=== PATIENT | female | born 1990 | race Two or more races ===

== ENCOUNTER 2018-12-25 19:56 | Inpatient (IN) | payer OTHER ==
[~2018-12-25] VITALS: Ht 160 cm; Wt 72.8 kg
[2018-12-25] MEDS ORDERED: ONDANSETRON 2MG/ML, 2ML IVPush ONE (20:30)
[2018-12-25] MEDS ORDERED: SODIUM CHLORIDE FLUSH 10ML SYR IVF ONE (20:30)
[2018-12-25] MEDS ORDERED: MORPHINE SULFATE 4 MG/ML, 1ML ONE ×2 (20:34→21:06)
[2018-12-25] MEDS ORDERED: ONDANSETRON 2MG/ML, 2ML ONE (20:34)
[2018-12-25] MEDS: MORPHINE SULFATE 4 MG/ML, 1ML IVPush PRN ×2 (20:45→21:12)
[2018-12-25 20:46] LABS: BASOPHILS # (AUTO) 0.05 x10^3/uL (0-0.1); BASOPHILS % (AUTO) 0 % (0-1); EOSINOPHILS # (AUTO) 0.38 x10^3/uL (0-0.4); EOSINOPHILS % (AUTO) 3 % (1-7); LYMPHOCYTES # (AUTO) 2.79 x10^3/uL (1-3.4); LYMPHOCYTES % (AUTO) 19 % (22-44); MD NO; MEAN CORPUSCULAR HEMOGLOBIN 29.7 pg (27.0-34.8); MEAN CORPUSCULAR HGB CONC 33.4 g/dL (32.4-35.8); MEAN CORPUSCULAR VOLUME 88.8 fL (80-100); MEAN PLATELET VOLUME 9.1 fL (7.4-10.4); MONOCYTES # (AUTO) 0.94 x10^3/uL (0.2-0.8); MONOCYTES % (AUTO) 7 % (2-9); NEUTROPHILS # (AUTO) 10.33 x10^3/uL (1.8-6.8); NEUTROPHILS % (AUTO) 71 % (42-75); PLATELET COUNT 241 x10^3/uL (130-400); RED BLOOD COUNT 4.41 x10^6/uL (3.82-5.3); RED CELL DISTRIBUTION WIDTH 13.7 % (9.6-15.2)
[2018-12-25 20:49] LABS: MICROSCOPIC AUTO
[2018-12-25 20:53] LABS: CULTURE INDICATED? NO
[2018-12-25 20:56] LABS: ALANINE AMINOTRANSFERASE 51 U/L (12-78); ALBUMIN 3.6 g/dL (3.4-5.0); ANION GAP 7 mmol/L (5-15); CALCIUM 8.7 mg/dL (8.5-10.1); CHLORIDE 105 mmol/L (98-107); CREATININE 0.72 mg/dL (0.55-1.02)
--- NOTE | 2018-12-25 20:57 | NUR ---
SBAR report received from Anika WHITE.
[2018-12-25 21:00] LABS: ALKALINE PHOSPHATASE 66 U/L (45-117); BILIRUBIN,TOTAL 0.5 mg/dL (0.2-1.0); TOTAL PROTEIN 7.3 g/dL (6.4-8.2)
--- NOTE | 2018-12-25 21:13 | NUR ---
Pt medicated per MAR.
--- NOTE | 2018-12-25 21:45 | NUR ---
Pt in imaging.
--- NOTE | 2018-12-25 21:57 | NUR ---
Pt back to room from imaging.
[2018-12-25] MEDS ORDERED: OMNIPAQUE 350 MG/ML, 100ML BOTTLE ONE (22:11)
[2018-12-25] MEDS ORDERED: CEFTRIAXONE PMX 1GM/50ML 50 ML IVPB ONE (22:30)
[2018-12-25] MEDS ORDERED: CEFTRIAXONE PMX 1GM/50ML 50 ML ONE (22:32)
--- NOTE | 2018-12-25 22:40 | NUR ---
Pt ambulated to the bathroom, no assistance required.
[2018-12-25] MEDS ORDERED: OMNIPAQUE 350 MG/ML, 75ML BOTTLE ONE (22:47)
--- NOTE | 2018-12-25 22:50 | NUR ---
Pt back to [facility], IV ABX started. Pt states that she had 2 bouts of emesis in bathroom.
--- NOTE | 2018-12-25 23:07 | NUR ---
Dr. Gamez at bedside, with small arms repairer, to discuss ED findings and POC.
[2018-12-26] MEDS ORDERED: ONDANSETRON 2MG/ML, 2ML IVPush PRN
[2018-12-26] MEDS: ENOXAPARIN 40 MG/0.4 ML SQ SCH
[2018-12-26] MEDS ORDERED: BISACODYL 10 MG SUPP PR PRN
[2018-12-26] MEDS ORDERED: CEFTRIAXONE PMX 1GM/50ML 50 ML IV SCH
[2018-12-26] MEDS ORDERED: POLYETHYLENE GLYCOL 17 GM PACKET PO PRN
[2018-12-26] MEDS ORDERED: ACETAMINOPHEN 325 MG TABLET PO PRN
[2018-12-26] MEDS ORDERED: ONDANSETRON 2MG/ML, 2ML ONE (00:31)
--- NOTE | 2018-12-26 00:42 | NUR ---
Pt resting on camacho, aware of plan to admit. Pt's boyfriend to go home now.
--- NOTE | 2018-12-26 01:24 | NUR ---
Telephone SBAR report given to RNLovely. Pt made aware of new room assignment.
[2018-12-26 03:47] VITALS: BP 99/67
[2018-12-26 05:28] LABS: BASOPHILS # (AUTO) 0.06 x10^3/uL (0-0.1); BASOPHILS % (AUTO) 0 % (0-1); EOSINOPHILS # (AUTO) 0.03 x10^3/uL (0-0.4); EOSINOPHILS % (AUTO) 0 % (1-7); LYMPHOCYTES # (AUTO) 1.84 x10^3/uL (1-3.4); LYMPHOCYTES % (AUTO) 13 % (22-44); MD NO; MEAN CORPUSCULAR HEMOGLOBIN 29.4 pg (27.0-34.8); MEAN CORPUSCULAR HGB CONC 33.1 g/dL (32.4-35.8); MEAN CORPUSCULAR VOLUME 88.9 fL (80-100); MEAN PLATELET VOLUME 9.2 fL (7.4-10.4); MONOCYTES # (AUTO) 0.83 x10^3/uL (0.2-0.8); MONOCYTES % (AUTO) 6 % (2-9); NEUTROPHILS # (AUTO) 11.57 x10^3/uL (1.8-6.8); NEUTROPHILS % (AUTO) 81 % (42-75); PLATELET COUNT 234 x10^3/uL (130-400); RED CELL DISTRIBUTION WIDTH 13.9 % (9.6-15.2)
[2018-12-26 05:33] LABS: ANION GAP 7 mmol/L (5-15); CALCIUM 8.6 mg/dL (8.5-10.1); CHLORIDE 106 mmol/L (98-107)
[2018-12-26 05:34] LABS: CREATININE 0.64 mg/dL (0.55-1.02)
[2018-12-26 07:30] VITALS: BP 105/70
[2018-12-26] MEDS: SENNA/DOCUSATE TABLET PO SCH (08:35)
[2018-12-26] MEDS: SODIUM CHLORIDE 0.9% 1,000 ML IV SCH ×2 (08:50→22:24)
[2018-12-26 10:08] LABS: HEMOGLOBIN A1C 5.8 % (4.2-6.3)
[2018-12-26 12:30] VITALS: BP 99/66
[2018-12-26] MEDS ORDERED: PIPERACILLIN/TAZO/PMX 3.375GM 50 ML IV SCH (13:00)
[2018-12-26] MEDS: PIPERACILLIN/TAZO/PMX 3.375GM 50 ML IV SCH ×2 (13:25→18:23)
[2018-12-26] MEDS: KETOROLAC 30 MG/1 ML IV PRN (14:27)
[2018-12-26 18:19] VITALS: BP 101/69
[2018-12-27] MEDS: PIPERACILLIN/TAZO/PMX 3.375GM 50 ML IV SCH ×4 (00:31→17:59)
[2018-12-27 00:44] VITALS: BP 99/63
[2018-12-27 03:58] LABS: BASOPHILS # (AUTO) 0.06 x10^3/uL (0-0.1); BASOPHILS % (AUTO) 1 % (0-1); EOSINOPHILS # (AUTO) 0.23 x10^3/uL (0-0.4); EOSINOPHILS % (AUTO) 2 % (1-7); LYMPHOCYTES # (AUTO) 2.09 x10^3/uL (1-3.4); LYMPHOCYTES % (AUTO) 18 % (22-44); MD NO; MEAN CORPUSCULAR HEMOGLOBIN 29.6 pg (27.0-34.8); MEAN CORPUSCULAR HGB CONC 32.8 g/dL (32.4-35.8); MEAN CORPUSCULAR VOLUME 90.2 fL (80-100); MONOCYTES # (AUTO) 0.84 x10^3/uL (0.2-0.8); MONOCYTES % (AUTO) 7 % (2-9); NEUTROPHILS # (AUTO) 8.31 x10^3/uL (1.8-6.8); NEUTROPHILS % (AUTO) 72 % (42-75); PLATELET COUNT 220 x10^3/uL (130-400); RED BLOOD COUNT 4.09 x10^6/uL (3.82-5.3); RED CELL DISTRIBUTION WIDTH 13.7 % (9.6-15.2)
[2018-12-27 04:10] LABS: ANION GAP 6 mmol/L (5-15); CHLORIDE 112 mmol/L (98-107); CREATININE 0.66 mg/dL (0.55-1.02)
[2018-12-27 08:00] VITALS: BP 106/70
[2018-12-27] MEDS: SENNA/DOCUSATE TABLET PO SCH (08:22)
[2018-12-27] MEDS: KETOROLAC 30 MG/1 ML IV PRN (08:24)
[2018-12-27] MEDS: SODIUM CHLORIDE 0.9% 1,000 ML IV SCH (11:10)
[2018-12-27 13:47] VITALS: BP 112/74
[2018-12-27 18:22] VITALS: BP 108/74
[2018-12-27] MEDS: ENOXAPARIN 40 MG/0.4 ML SQ SCH ×2 (21:00)
[2018-12-28 00:24] VITALS: BP 107/69
[2018-12-28] MEDS: SODIUM CHLORIDE 0.9% 1,000 ML IV SCH (00:50)
[2018-12-28] MEDS: PIPERACILLIN/TAZO/PMX 3.375GM 50 ML IV SCH ×2 (00:53→06:29)
[2018-12-28 05:09] LABS: BASOPHILS # (AUTO) 0.06 x10^3/uL (0-0.1); BASOPHILS % (AUTO) 1 % (0-1); EOSINOPHILS # (AUTO) 0.49 x10^3/uL (0-0.4); EOSINOPHILS % (AUTO) 5 % (1-7); LYMPHOCYTES % (AUTO) 22 % (22-44); MD NO; MEAN CORPUSCULAR HEMOGLOBIN 29.8 pg (27.0-34.8); MEAN CORPUSCULAR HGB CONC 33.3 g/dL (32.4-35.8); MEAN CORPUSCULAR VOLUME 89.4 fL (80-100); MEAN PLATELET VOLUME 8.8 fL (7.4-10.4); MONOCYTES # (AUTO) 0.98 x10^3/uL (0.2-0.8); MONOCYTES % (AUTO) 10 % (2-9); NEUTROPHILS # (AUTO) 6.44 x10^3/uL (1.8-6.8); NEUTROPHILS % (AUTO) 63 % (42-75); PLATELET COUNT 232 x10^3/uL (130-400); RED CELL DISTRIBUTION WIDTH 13.6 % (9.6-15.2)
[2018-12-28 05:19] LABS: ALANINE AMINOTRANSFERASE 36 U/L (12-78); ALBUMIN 2.9 g/dL (3.4-5.0); ANION GAP 5 mmol/L (5-15); CHLORIDE 111 mmol/L (98-107); CREATININE 0.67 mg/dL (0.55-1.02)
[2018-12-28 05:22] LABS: ALKALINE PHOSPHATASE 47 U/L (45-117); BILIRUBIN,TOTAL 0.3 mg/dL (0.2-1.0); TOTAL PROTEIN 6.5 g/dL (6.4-8.2)
[2018-12-28 07:25] VITALS: BP 108/70
[2018-12-28] MEDS ORDERED: ONDA4TAB7 PO (08:47)
[2018-12-28] MEDS ORDERED: CEFD300C37 PO (08:47)
[2018-12-28] MEDS: SENNA/DOCUSATE TABLET PO SCH (08:52)
== END 2018-12-28 12:00 | disposition home or self-care (01) | DRG 700 ==
LOC: ED 21:15 → EDIP 23:37 → 3NE 12-26 01:32
PROVIDERS: ADMIT Family Medicine; ATTEND Family Medicine
DX: Q64.4 Malformation of urachus (principal); K59.00 Constipation, unspecified; D72.829 Elevated white blood cell count, unspecified
CPT/HCPCS: 36415; 74177; 80048; 80053; 81001; 83036; 83690; 84703; 85025; 87040; 96374; 96376; G0378; J0696; J1885; J2405; J2543; Q9967; J2270; J7030